=== PATIENT | female | born 1995 | race American Indian/Alaskan Native ===

== ENCOUNTER 2017-09-04 17:51 | Outpatient (CLI) | payer OTHER ==
[2017-09-04 18:13] VITALS: BP 120/71
[2017-09-04] MEDS ORDERED: VISTARIL PO PRN (19:08)
== END 2017-09-04 19:14 | disposition home or self-care (01) ==
LOC: TRG 17:51
PROVIDERS: ATTEND Obstetrics & Gynecology
DX: Z34.93 Encounter for supervision of normal pregnancy, unspecified, third trimester (principal); Z3A.38 38 weeks gestation of pregnancy
CPT/HCPCS: 59025; Q0177

== ENCOUNTER 2017-09-08 00:04 | Outpatient (CLI) | payer OTHER | END 2017-09-08 02:35 | disposition home or self-care (01) | LOC: TRG 00:04 | PROVIDERS: ATTEND Obstetrics & Gynecology | DX: O62.9 Abnormality of forces of labor, unspecified (principal); Z3A.39 39 weeks gestation of pregnancy | CPT/HCPCS: 59025 ==

== ENCOUNTER 2017-09-14 15:24 | Inpatient (IN) | payer OTHER ==
[2017-09-14] MEDS ORDERED: XYLOCAINE 2% INFILTRATI ONE (16:50)
[2017-09-14] MEDS ORDERED: ePHEDrine SULFATE IV PRN (16:50)
[2017-09-14] MEDS ORDERED: BRETHINE IVP PRN (16:50)
[2017-09-14] MEDS ORDERED: NARCAN 0.4 MG/1 ML IV PRN (16:50)
[2017-09-14] MEDS ORDERED: MINERAL OIL PO PRN (16:50)
[2017-09-14] MEDS ORDERED: BRETHINE SUB-Q PRN (16:50)
[2017-09-14] MEDS ORDERED: STADOL IV PRN (16:50)
[2017-09-14] MEDS ORDERED: PITOCin/NS 20 UNIT/1000ML DRIP 20 UNITS/1,000 ML BAG IV SCH (17:00)
--- NOTE | 2017-09-14 17:08 | History and Physical Report ---
History of Present Illness Date of examination: 09/14/17 Date of admission: 09/14/2017 Chief complaint: Labor Pains History of present illness: Early entry to care, mildly elevated blood pressures in the first trimester, co-supa with APA due to maternal obesity. course complicated by a UTI and Vitamin D Insufficiency. Right ventriculomegaly observed at 22 Weeks consulted with Pediatric Cardiology. Past History Past Medical History: asthma Past Surgical History: no surgical history Family/Genetic History: diabetes, hypertension Social history: no significant social history, single - Obstetrical History Expected Date of Delivery: 09/13/17 Actual Gestation: 40 Week(s) 1 Day(s) : 2 Para: 1 Hx # Term Pregnancies: 1 Number of Living Children: 1 #1 Gender: Female year: Birthweight: 3.232 kg Method of Delivery: Vaginal Gestational age at delivery: 40 Complications: none Medications and Allergies Allergies Allergy/AdvReac Type Severity Reaction Status Date / Time latex Allergy Itching Verified 09/04/17 17:58 Home Medications Medication Instructions Recorded Confirmed Last Taken Type Pnv with Ca,No.72/Iron/FA 1 tab PO DAILY 12/06/14 09/14/17 09/12/17 21:00 History [ Plus Tablet] Active Meds: Active Medications Butorphanol Tartrate (Stadol) 2 mg IV Q2H PRN PRN Reason: Pain , Severe (7-10) Ephedrine Sulfate (Ephedrine Sulfate) 10 mg IV Q2M PRN PRN Reason: Hypotension Parenteral Electrolytes (Normosol-R Ph 7.4) 1,000 mls @ 125 mls/hr IV DIRECT ETHAN Oxytocin/Sodium Chloride (Pitocin/Ns 20 Unit/1000ml Drip) 20 units in 1,000 mls @ 125 mls/hr IV DIRECT ETHAN Lidocaine (Xylocaine 2%) 20 ml INFILTRATI ONCE ONE Stop: 09/14/17 16:51 Mineral Oil (Mineral Oil) 30 ml PO QHS PRN PRN Reason: Constipation Naloxone HCl (Narcan 0.4 Mg/1 Ml) 0.1 mg IV Q2MIN PRN PRN Reason: Res Rate </= 8 or 02 SAT < 92% Terbutaline Sulfate (Brethine) 0.25 mg SUB-Q ONCE PRN PRN Reason: Hyperstimulation/Hypertonicity Terbutaline Sulfate (Brethine) 0.25 mg IVP ONCE PRN PRN Reason: Hyperstimulation/Hypertonicity Review of Systems All systems: negative - Vital Signs Vital signs: Vital Signs Pulse BP 96 H 144/80 09/14/17 16:17 09/14/17 16:17 Temp Pulse Resp BP Pulse Ox 98.7 F 108 H 144/80 98 09/14/17 16:40 09/14/17 17:03 09/14/17 16:17 09/14/17 17:03 - Physical Exam Breasts: Positive: normal Cardiovascular: Regular rate Lungs: Positive: Clear to auscultation, Normal air movement Abdomen: Positive: normal appearance, soft, normal bowel sounds Genitourinary (Female): Positive: normal external genitalia, normal perenium Vagina: Positive: normal moisture Uterus: Positive: enlarged Anus/Rectum: Positive: normal perianal skin Extremities: Positive: edema - Obstetrical FHR: category 1 Uterine Contraction Monitor Mode: External Cervical Dilatation: 4.5 Cervical Effacement Percentage: 70 station: -2 Uterine Contraction Pattern: Irregular Uterine Tone Measurement Phase: Resting Uterine Contraction Intensity: Moderate Results All other labs normal. Assessment and Plan A: IUP @ 40 1/7 Weeks Category I Tracing Early Labor GBS Negative P: Admit to L&D per Routine Orders Expectant Management
[2017-09-14 19:33] LABS: Hematocrit 33.6 % (30.3-42.9); Hemoglobin 11.3 gm/dl (10.1-14.3); Mean Corpuscular HGB Conc 34 % (30-34); Mean Corpuscular Hemoglobin 28 pg (28-32); Mean Corpuscular Volume 83 fl (79-97); Platelet Count 239 K/mm3 (140-440); Red Blood Count 4.07 M/mm3 (3.65-5.03)
[2017-09-14] MEDS ORDERED: PITOCin/NS 30 UNIT/500ML 30,000 MILLIUNITS/500 ML BAG IV ONE (19:46)
[2017-09-14] MEDS: NORMOSOL-R PH 7.4 1,000 ML IV SCH (20:01)
[2017-09-14] MEDS: PITOCin/NS 30 UNIT/500ML 30 UNITS/500 ML BAG IV SCH ×4 (20:01→22:45)
--- NOTE | 2017-09-14 22:59 | Progress Note ---
Assessment and Plan - Patient Problems (1) 40 weeks gestation of Onset Date: 09/14/17 Current Visit: Yes Status: Acute Plan to address problem: A: IUP @ 40 1/7 weeks in labor P: Continue with pitocin augmentation of labor Expectant vaginal delivery Subjective - Subjective Date of service: 09/14/17 Principal diagnosis: IUP @ 40 1/7 weeks Interval history: Pt currently on pitocin 12mu/mins and samara q 3-4 mins with IV pain meds. Patient reports: movement normal, contractions, no new complaints, no loss of fluid, no vaginal bleeding Objective - Vital Signs Vital Signs: Vital Signs - 12hr 09/14/17 09/14/17 09/14/17 16:17 16:18 16:23 Temperature Pulse Rate 96 H 94 H 95 H Respiratory Rate Blood Pressure 144/80 Blood Pressure [Left] O2 Sat by Pulse 98 97 Oximetry 09/14/17 09/14/17 09/14/17 16:28 16:33 16:38 Temperature Pulse Rate 93 H 104 H 92 H Respiratory Rate Blood Pressure Blood Pressure [Left] O2 Sat by Pulse 97 97 98 Oximetry 09/14/17 09/14/17 09/14/17 16:40 16:43 16:48 Temperature 98.7 F Pulse Rate 95 H 102 H 94 H Respiratory Rate Blood Pressure Blood Pressure [Left] O2 Sat by Pulse 96 96 96 Oximetry 09/14/17 09/14/17 09/14/17 16:53 16:58 17:03 Temperature Pulse Rate 94 H 91 H 108 H Respiratory Rate Blood Pressure Blood Pressure [Left] O2 Sat by Pulse 97 98 98 Oximetry 09/14/17 09/14/17 09/14/17 17:08 17:13 17:18 Temperature Pulse Rate 96 H 96 H 95 H Respiratory Rate Blood Pressure Blood Pressure [Left] O2 Sat by Pulse 98 98 98 Oximetry 09/14/17 09/14/17 09/14/17 17:23 17:28 17:33 Temperature Pulse Rate 101 H 94 H 98 H Respiratory Rate Blood Pressure Blood Pressure [Left] O2 Sat by Pulse 97 98 98 Oximetry 09/14/17 09/14/17 09/14/17 17:38 17:43 17:48 Temperature Pulse Rate 92 H 91 H 89 Respiratory Rate Blood Pressure Blood Pressure [Left] O2 Sat by Pulse 98 98 98 Oximetry 09/14/17 09/14/17 09/14/17 17:53 17:58 18:00 Temperature Pulse Rate 89 93 H 92 H Respiratory Rate Blood Pressure Blood Pressure [Left] O2 Sat by Pulse 98 98 91 Oximetry 09/14/17 09/14/17 09/14/17 18:03 19:08 19:13 Temperature 97.7 F Pulse Rate 88 90 90 Respiratory 18 Rate Blood Pressure 114/72 Blood Pressure 115/70 [Left] O2 Sat by Pulse 98 97 Oximetry 09/14/17 09/14/17 09/14/17 19:15 20:06 20:39 Temperature Pulse Rate 90 89 89 Respiratory Rate Blood Pressure 115/70 119/71 117/68 Blood Pressure [Left] O2 Sat by Pulse Oximetry 09/14/17 09/14/17 09/14/17 21:10 21:25 21:40 Temperature 99.1 F Pulse Rate 85 108 H 86 Respiratory 18 Rate Blood Pressure 116/68 120/67 Blood Pressure 132/79 [Left] O2 Sat by Pulse 100 Oximetry 09/14/17 09/14/17 22:09 22:40 Temperature Pulse Rate 92 H 99 H Respiratory Rate Blood Pressure 105/57 127/86 Blood Pressure [Left] O2 Sat by Pulse Oximetry - Exam Abdomen: Present: normal appearance, soft Uterus: Present: normal FHR: category 1 Uterine Contraction Monitor Mode: External Cervical Dilatation: 5 Cervical Effacement Percentage: 70 station: -2 Uterine Contraction Pattern: Regular Uterine Tone Measurement Phase: Contraction Uterine Contraction Intensity: Moderate - Labs Labs: Laboratory Results - last 24 hr 09/14/17 09/14/17 19:10 19:10 WBC 10.5 RBC 4.07 Hgb 11.3 Hct 33.6 MCV 83 MCH 28 MCHC 34 RDW 14.0 Plt Count 239 Blood Type O POSITIVE Antibody Screen Negative
[2017-09-15] MEDS: NORMOSOL-R PH 7.4 1,000 ML IV SCH ×2 (00:30→02:20)
[2017-09-15] MEDS ORDERED: NARCAN 2 MG/2 ML IV PRN (01:41)
[2017-09-15] MEDS ORDERED: ePHEDrine SULFATE IV PRN (01:41)
--- NOTE | 2017-09-15 01:41 | Anesthesia Consultation ---
Anesthesia Consult and Med Hx Date of service: 09/15/17 - Airway Anesthetic Teeth Evaluation: Good ROM Head & Neck: Adequate Mental/Hyoid Distance: Adequate Mallampati Class: Class II Intubation Access Assessment: Good - Pulmonary Exam CTA: Yes - Cardiac Exam Cardiac Exam: No Murmur - Pre-Operative Health Status ASA Pre-Surgery Classification: ASA2 Proposed Anesthetic Plan: Epidural - Pulmonary Hx Asthma: Yes (last attack over 1 year) COPD: No Hx Pneumonia: No - Cardiovascular System Hx Hypertension: No Hx Coronary Artery Disease: No Hx Heart Attack/AMI: No Hx Angina: No - Central Nervous System Hx Seizures: No Hx Psychiatric Problems: No - Gastrointestinal Hx Gastroesophageal Reflux Disease: No - Endocrine Hx Renal Disease: No Hx End Stage Renal Disease: No Hx Hypothyroidism: No Hx Hyperthyroidism: No - Hematic Hx Anemia: No Hx Sickle Cell Disease: No - Other Systems Hx Alcohol Use: No Hx Obesity: Yes (BMI 44)
[2017-09-15] MEDS ORDERED: fentaNYL-BUPIV 2 MCG/ML-0.125% 200 MCG/100 ML BAG EPIDURAL SCH (02:00)
[2017-09-15] MEDS ORDERED: XYLOCAINE 2% INFILTRATI ONE (03:58)
--- NOTE | 2017-09-15 04:15 | Procedure Note ---
OB Delivery Note - Delivery Date of Delivery: 09/15/17 Surgeon: ROBINA WHITLEY Estimated blood loss: 200cc - Vaginal Delivery presentation: vertex Delivery position: OA Intrapartum events: none Delivery induction: none Delivery augmentation: rupture of membranes Delivery monitor: external FHT, external uterine Route of delivery: Delivery placenta: spontaneous Delivery cord: 3 umbilical vessels Episiotomy: none Delivery laceration: 2nd degree (perineal) Delivery repair: vicryl Anesthesia: local, epidural Delivery comments: delivered OA and placed on Mom's chest for [id number] bonding and delayed cord clamping. - A at 1 minute: 8 at 5 minutes: 8 Gender: Male (3766gms)
[2017-09-15] MEDS ORDERED: PHENERGAN PO PRN (04:16)
[2017-09-15] MEDS ORDERED: LANSINOH TP PRN (04:16)
[2017-09-15] MEDS ORDERED: TYLENOL PO PRN (04:16)
[2017-09-15] MEDS ORDERED: ZOFRAN IV PRN (04:16)
[2017-09-15] MEDS ORDERED: DULCOLAX PR PRN (04:16)
[2017-09-15] MEDS ORDERED: BENADRYL PO PRN (04:16)
[2017-09-15] MEDS ORDERED: MILK OF MAGNESIA PO PRN (04:16)
[2017-09-15] MEDS ORDERED: TUCKS PAD TP PRN (04:16)
[2017-09-15] MEDS ORDERED: PHENERGAN PR PRN (04:16)
[2017-09-15] MEDS: NORCO 5/325 PO PRN ×2 (04:36→10:42)
[2017-09-15] MEDS ORDERED: PITOCin/NS 20 UNIT/1000ML DRIP 20 UNITS/1,000 ML BAG IV SCH ×2 (05:00)
[2017-09-15] MEDS ORDERED: SODIUM CHLORIDE FLUSH SYRINGE 10 ML IV NR (05:00)
[2017-09-15] MEDS: MOTRIN PO SCH ×3 (05:36→18:14)
[2017-09-15] MEDS: FEOSOL PO SCH ×2 (10:43→22:19)
[2017-09-15] MEDS: PRENATAL VITAMIN PO SCH (10:43)
[2017-09-15] MEDS: COLACE PO SCH ×2 (10:43→22:19)
[2017-09-15 16:31] LABS: Hematocrit 28.6 % (30.3-42.9); Hemoglobin 9.3 gm/dl (10.1-14.3)
[2017-09-16] MEDS: MOTRIN PO SCH ×2 (00:15→05:39)
[2017-09-16] MEDS ORDERED: M-M-R II VACCINE SUB-Q ONE (06:00)
[2017-09-16] MEDS: COLACE PO SCH (10:09)
[2017-09-16] MEDS: PRENATAL VITAMIN PO SCH (10:10)
[2017-09-16] MEDS: FEOSOL PO SCH (10:11)
--- NOTE | 2017-09-16 14:07 | Progress Note ---
Assessment and Plan A: PPD#1 s/p Stable Desires discharge home P: Routine PP care Discharge home today PPE in 6 weeks Subjective - Subjective Date of service: 09/16/17 Principal diagnosis: 09/15/17 Patient reports: appetite normal, voiding normally, pain well controlled, flatus , ambulating normally : doing well, nursing well Objective - Vital Signs Latest vital signs: Vital Signs Temp Pulse Resp BP BP Pulse Ox 09/16/17 12:00 98.9 F 90 20 115/61 96 09/16/17 08:29 98.6 F 83 20 120/68 96 09/16/17 05:39 18 09/16/17 00:15 18 09/15/17 23:30 98.7 F 98 H 18 114/68 Intake and Output 09/15/17 09/16/17 09/16/17 23:59 07:59 15:59 Intake Total 480 180 120 Balance 480 180 120 Intake: Oral 120 Intake, Free Water 480 180 Other: Total, Intake Amount 120 # Voids Void 1 1 - Exam Breasts: Present: normal Cardiovascular: Present: Regular rate, Normal S1, Normal S2 Lungs: Present: Clear to auscultation, Normal air movement Abdomen: Present: normal appearance, soft, normal bowel sounds Vulva: both: normal Uterus: Present: firm, fundal height below umbilicus (-1) Extremities: Present: normal, edema (+1). Absent: tenderness Deep Tendon Reflex Grade: Normal +2 - Labs Labs: Abnormal lab results 09/15/17 Range/Units 16:05 Hgb 9.3 L (10.1-14.3) gm/dl Hct 28.6 L (30.3-42.9) %
--- NOTE | 2017-09-16 14:08 | Discharge Summary ---
Providers - Providers Date of Admission: 09/14/17 18:03 Date of discharge: 09/16/17 Attending physician: NIKA GARNER MD Primary care physician: NIKA GARNER MD Hospitalization Reason for admission: IUP at term Delivery: Procedure details: See delivery note Episiotomy: none Laceration: none Other procedures: none complications: none Discharge diagnosis: IUP at term delivered baby: male Condition at discharge: Good Disposition: DC-01 TO HOME OR SELFCARE Plan - Provider Discharge Summary Activity: routine, no sex for 6 weeks, no heavy lifting 4 weeks, no strenuous exercise Diet: routine Instructions: routine Additional instructions: [] Smoking cessation referral if applicable(refer to patient education folder for contact #) [] Refer to [facility] Booklet Call your doctor immediately for: * Fever > 100.5 * Heavy vaginal bleeding ( >1 pad per hour) * Severe persistent headache * Shortness of breath * Reddened, hot, painful area to leg or breast * Drainage or odor from incision. * Keep incision clean and dry at all times and follow doctor's instructions regarding bathing/showering - Follow up plan Follow up: NIKA GARNER MD [Primary Care Provider] - 6 Weeks
[2017-09-16 18:43] VITALS: BP 122/78
== END 2017-09-16 20:40 | disposition home or self-care (01) | DRG 775 ==
LOC: TRG 15:24 → LD 18:03 → OB 09-15 05:26
PROVIDERS: ADMIT Obstetrics & Gynecology; ATTEND Obstetrics & Gynecology
PROC: 10E0XZZ Delivery of Products of Conception, External Approach (ICD-10-PCS; principal; 2017-09-15)
PROC: 0KQM0ZZ Repair Perineum Muscle, Open Approach (ICD-10-PCS; 2017-09-15)
PROC: 3E0234Z Introduction of Serum, Toxoid and Vaccine into Muscle, Percutaneous Approach (ICD-10-PCS; 2017-09-16)
PROC: 3E0R3BZ Introduction of Anesthetic Agent into Spinal Canal, Percutaneous Approach (ICD-10-PCS; 2017-09-16)
PROC: 00HU33Z Insertion of Infusion Device into Spinal Canal, Percutaneous Approach (ICD-10-PCS; 2017-09-16)
DX: O99.214 Obesity complicating childbirth (principal); O99.52 Diseases of the respiratory system complicating childbirth; E66.9 Obesity, unspecified; J45.909 Unspecified asthma, uncomplicated; Z3A.40 40 weeks gestation of pregnancy; Z37.0 Single live birth; Z23 Encounter for immunization; Z68.43 Body mass index [BMI] 50.0-59.9, adult; Z83.3 Family history of diabetes mellitus; Z82.49 Family history of ischemic heart disease and other diseases of the circulatory system; O70.1 Second degree perineal laceration during delivery
CPT/HCPCS: 36415; 59025; 85014; 85018; 85027; 86850; 86900; 86901; A6250; J0595; J2590

== ENCOUNTER 2020-11-16 20:50 | Inpatient (IN) | payer OTHER ==
[2020-11-16] MEDS ORDERED: DINOPROSTONE 10 MG VAG SUPP VG STA (22:51)
--- NOTE | 2020-11-16 23:15 | History and Physical Report ---
History of Present Illness Date of examination: 11/16/20 Date of admission: 11/16/20 20:50 Chief complaint: scheduled induction of labor at 39.0wks History of present illness: at 39.0wks by LMP c/w U/S. pt here for scheduled induction due morbid obesity. Pt admits to feeling ctx, denies leakage of fluid, vaginal bleeding or headache. care at [facility] with Rh positive, neg antibody screen, Rub Immune, RPR and HIV are both negative and Hep BsAg negative. Abnormal 1hrgtt with normal 3hrgtt. Past History Past Medical History: asthma (no attack since childhood), other (morbid obesity) Past Surgical History: no surgical history Social history: no significant social history - Obstetrical History Expected Date of Delivery: 11/23/20 Actual Gestation: 39 Week(s) 0 Day(s) : 4 Hx # Term Pregnancies: 2 Spontaneous Abortions: 1 Number of Living Children: 2 Medications and Allergies Allergies Allergy/AdvReac Type Severity Reaction Status Date / Time latex Allergy Itching Verified 09/04/17 17:58 Home Medications Medication Instructions Recorded Confirmed Last Taken Type Pnv with Ca,No.72/Iron/FA 1 tab PO DAILY 12/06/14 09/14/17 09/12/17 21:00 History [ Plus Tablet] Review of Systems All systems: negative (no complaints) - Vital Signs Vital signs: Vital Signs Temp Pulse Resp BP 98.6 F 91 H 18 121/61 11/16/20 21:11 11/16/20 21:11 11/16/20 21:11 11/16/20 21:11 Temp Pulse Resp BP Pulse Ox 98.6 F 91 H 18 121/61 11/16/20 21:11 11/16/20 21:22 11/16/20 21:11 11/16/20 21:22 - Physical Exam Breasts: Positive: deferred Cardiovascular: Regular rate Lungs: Positive: Normal air movement Abdomen: Positive: soft, other (obese) Genitourinary (Female): Positive: normal external genitalia Vagina: Positive: normal moisture Uterus: Positive: enlarged (non-tender gravid) Extremities: Positive: normal - Obstetrical FHR: category 1 Uterine Contraction Monitor Mode: External Cervical Dilatation: 3 (not c/w with admit nurse) Cervical Effacement Percentage: 50 station: -2 Results All other labs normal. Assessment and Plan term IUP with BMI 51 here for induction of labor, now in latent labor,GBS negative and h/o stable asthma 1. Admit to labor and delivery 2. Augment labor with IV pitocin 3. May have IV pain med or Epidural when desired 4. No hemabate if uterotonics needed Plan of care discussed. Expect
[2020-11-16] MEDS ORDERED: miSOPROStol 200 MCG TAB PR PRN (23:22)
[2020-11-16] MEDS ORDERED: PROMETHAZINE 25 MG TAB PO PRN (23:22)
[2020-11-16] MEDS ORDERED: TERBUTALINE 1 MG/1 ML INJ SUB-Q PRN (23:22)
[2020-11-16] MEDS ORDERED: NalbUPHINE 10 MG/1 ML INJ IV PRN (23:22)
[2020-11-16] MEDS ORDERED: LIDOCAINE (2%) 20 MG/1 ML VIAL 20 ML MDV INFILTRATI ONE (23:22)
[2020-11-16] MEDS ORDERED: MINERAL OIL 30 ML ORAL LIQD PO PRN (23:22)
[2020-11-16] MEDS ORDERED: ePHEDrine SULFATE 50 MG/1 ML INJ IV PRN (23:22)
[2020-11-16] MEDS ORDERED: fentaNYL 100 MCG/2 ML INJ IV PRN (23:22)
[2020-11-16] MEDS ORDERED: NALOXONE 0.4 MG/1 ML INJ IV PRN (23:22)
[2020-11-16] MEDS ORDERED: ONDANSETRON 4 MG/2 ML INJ IV PRN (23:22)
[2020-11-16] MEDS ORDERED: LACTATED RINGERS 1,000 ML ONE ×2 (23:23)
[2020-11-16] MEDS ORDERED: OXYTOCIN DRIP 30,000 MILLIUNITS/500 ML BAG IV ONE (23:24)
[2020-11-16] MEDS ORDERED: OXYTOCIN DRIP 30 UNITS/500 ML BAG IV SCH ×2 (23:45)
[2020-11-17 00:05] LABS: Hematocrit 32.7 % (30.3-42.9); Hemoglobin 10.9 gm/dl (10.1-14.3); Mean Corpuscular HGB Conc 33 % (30-34); Mean Corpuscular Volume 83 fl (79-97); Platelet Count 285 K/mm3 (140-440); Red Blood Count 3.92 M/mm3 (3.65-5.03); Red Cell Distribution Width 14.6 % (13.2-15.2)
[2020-11-17] MEDS: LACTATED RINGERS 1,000 ML IV SCH ×2 (04:09→13:03)
--- NOTE | 2020-11-17 10:10 | Progress Note ---
Assessment and Plan A: IUP@ 39.1 wks MO GBS neg p: Continuous monitoring with Pitocin Pain med/Epidural prn Anticipate Subjective - Subjective Date of service: 11/17/20 Principal diagnosis: IUP@ 39.1 wks Patient reports: movement normal Objective - Vital Signs Vital Signs: Vital Signs - 12hr 11/17/20 11/17/20 11/17/20 07:04 07:35 07:56 Pulse Rate 79 80 83 Blood Pressure 132/63 129/71 O2 Sat by Pulse 98 Oximetry 11/17/20 11/17/20 11/17/20 07:57 08:01 08:05 Pulse Rate 81 82 85 Blood Pressure 119/69 O2 Sat by Pulse 91 96 93 Oximetry 11/17/20 11/17/20 11/17/20 08:06 08:11 08:16 Pulse Rate 84 99 H 81 Blood Pressure 126/63 O2 Sat by Pulse 96 96 97 Oximetry 11/17/20 11/17/20 11/17/20 08:21 08:26 08:31 Pulse Rate 86 90 81 Blood Pressure O2 Sat by Pulse 96 97 97 Oximetry 11/17/20 11/17/20 11/17/20 08:35 08:36 08:41 Pulse Rate 84 77 86 Blood Pressure 121/68 O2 Sat by Pulse 92 98 96 Oximetry 11/17/20 11/17/20 11/17/20 08:46 08:51 08:56 Pulse Rate 87 84 89 Blood Pressure O2 Sat by Pulse 96 97 97 Oximetry 11/17/20 11/17/20 11/17/20 09:01 09:02 09:05 Pulse Rate 89 92 H 79 Blood Pressure 144/79 O2 Sat by Pulse 98 94 Oximetry 11/17/20 11/17/20 11/17/20 09:06 09:11 09:16 Pulse Rate 93 H 89 95 H Blood Pressure O2 Sat by Pulse 97 97 96 Oximetry 11/17/20 11/17/20 11/17/20 09:21 09:26 09:31 Pulse Rate 81 86 84 Blood Pressure O2 Sat by Pulse 95 97 97 Oximetry 11/17/20 11/17/20 11/17/20 09:35 09:36 09:41 Pulse Rate 83 87 76 Blood Pressure 140/76 O2 Sat by Pulse 94 97 96 Oximetry 11/17/20 11/17/20 11/17/20 09:46 09:51 09:56 Pulse Rate 84 80 80 Blood Pressure O2 Sat by Pulse 96 96 96 Oximetry 11/17/20 11/17/20 10:01 10:06 Pulse Rate 78 82 Blood Pressure 140/78 O2 Sat by Pulse 96 Oximetry - Exam Breasts: normal Abdomen: Present: normal appearance, soft, normal bowel sounds Vulva: both: normal Uterus: Present: normal FHR: auscultation normal, category 1 Uterine Contraction Monitor Mode: External Cervical Dilatation: 4 Cervical Effacement Percentage: 75 station: -2 Uterine Contraction Pattern: Irregular Uterine Tone Measurement Phase: Resting Uterine Contraction Intensity: Mild Extremities: normal - Labs Labs: Laboratory Results - last 24 hr 11/16/20 21:30 WBC 9.6 RBC 3.92 Hgb 10.9 Hct 32.7 MCV 83 MCH 28 MCHC 33 RDW 14.6 Plt Count 285
[2020-11-17] MEDS ORDERED: HYDROCORTISONE 25 MG RECTAL SUPP PR PRN (15:37)
[2020-11-17] MEDS ORDERED: diphenhydrAMINE 25 MG CAP PO PRN (15:37)
[2020-11-17] MEDS ORDERED: ONDANSETRON 4 MG/2 ML INJ IV PRN (15:37)
[2020-11-17] MEDS ORDERED: PROMETHAZINE 25 MG RECT SUPP PR PRN (15:37)
[2020-11-17] MEDS ORDERED: oxyCODONE /ACETAMINOPHEN 5-325MG TAB PO PRN (15:37)
[2020-11-17] MEDS ORDERED: WITCH HAZEL/ GLYCERIN PAD TP PRN (15:37)
[2020-11-17] MEDS ORDERED: BENZOCAINE/MENTHOL 20/0.5% TOP SPRAY 56 GM TP PRN (15:37)
[2020-11-17] MEDS ORDERED: ACETAMINOPHEN 325 MG TAB PO PRN (15:37)
[2020-11-17] MEDS ORDERED: LANOLIN/ZINC/DIMETHICONE (LANSINOH) 7 GM TP PRN ×2 (15:37)
[2020-11-17] MEDS ORDERED: oxyCODONE /ACETAMINOPHEN 5-325MG TAB ONE (15:37)
[2020-11-17] MEDS ORDERED: PROMETHAZINE 25 MG TAB PO PRN (15:37)
--- NOTE | 2020-11-17 15:43 | Procedure Note ---
OB Delivery Note - Delivery Date of Delivery: 11/17/20 Surgeon: KYLE DICKINSON JR Estimated blood loss: 100cc - Vaginal Delivery presentation: vertex Delivery position: OA Intrapartum events: other(please specify) (precipitous delivery, delivered by RN) Delivery induction: oxytocin Delivery augmentation: rupture of membranes, pitocin Delivery monitor: external FHT, external uterine Route of delivery: Delivery placenta: spontaneous Episiotomy: none Delivery laceration: none Anesthesia: none Delivery comments: Precipitous delivery performed by RN at 1500. I presented to labor delivery shortly after the delivery of the placenta at 1510. Male infant 8/9 Apgars. 3484g, 20 inches. Fundus firm below the umbilicus. No lacerations noted. - Infant A at 1 minute: 8 at 5 minutes: 9 Infant Gender: Male
[2020-11-17] MEDS ORDERED: MAGNESIUM HYDROXIDE (MOM) ORAL LIQD UDC PO PRN (16:37)
[2020-11-17] MEDS: IBUPROFEN 600 MG TAB PO SCH (22:22)
[2020-11-18 06:26] LABS: Hematocrit 28.1 % (30.3-42.9); Hemoglobin 9.4 gm/dl (10.1-14.3)
[2020-11-18] MEDS: IBUPROFEN 600 MG TAB PO SCH ×2 (06:49→12:17)
--- NOTE | 2020-11-18 10:33 | Progress Note ---
Assessment and Plan A: PP Day #1 Asymptomatic Anemia P: Follow Routine Orders Encouraged to increase dietary iron D/C home today per patient request RTO in 6 Weeks Subjective - Subjective Date of service: 11/18/20 Principal diagnosis: IUP@ 39.1 wks Patient reports: appetite normal, voiding normally, pain well controlled, flatus, ambulating normally : doing well Objective - Vital Signs Latest vital signs: Vital Signs Temp Pulse Resp BP BP Pulse Ox 11/17/20 23:45 97.9 F 75 18 94/53 96 11/17/20 20:03 97.7 F 83 20 109/61 95 11/17/20 17:55 98.2 F 102 H 16 107/58 96 11/17/20 16:37 82 114/55 11/17/20 16:22 83 122/62 11/17/20 16:21 88 97 11/17/20 16:16 84 98 11/17/20 16:11 83 98 11/17/20 16:07 83 132/70 11/17/20 16:06 90 98 11/17/20 16:01 85 96 11/17/20 15:56 89 97 11/17/20 15:52 85 123/63 11/17/20 15:51 87 99 11/17/20 15:46 100 H 98 11/17/20 15:41 103 H 98 11/17/20 15:39 20 11/17/20 15:36 101 H 98 11/17/20 15:35 100 H 121/56 11/17/20 15:31 103 H 98 11/17/20 15:26 101 H 98 11/17/20 15:23 98 H 131/58 11/17/20 15:21 100 H 97 11/17/20 15:16 109 H 98 11/17/20 15:11 109 H 99 11/17/20 15:06 100 H 99 11/17/20 15:05 97.7 F 101 H 139/63 93 11/17/20 15:01 98 H 97 11/17/20 14:56 102 H 99 11/17/20 14:51 106 H 96 11/17/20 14:46 96 H 98 11/17/20 14:41 90 99 11/17/20 14:36 96 H 126/59 99 11/17/20 14:31 90 98 11/17/20 14:26 86 97 05/ 14:21 88 96 05 14:16 89 95 05 14:13 86 94 05 14:11 81 97 05 14:07 72 86 05 14:06 90 134/61 97 05 14:03 22 05 14:01 87 97 05 13:56 93 H 98 05 13:51 94 H 97 05 13:46 96 H 97 05 13:42 89 86 05 13:41 115 H 92 05 13:36 26 L 05 13:35 82 145/78 05 13:32 87 97 05 13:31 82 94 05 13:27 86 97 05 13:22 86 98 05 13:17 89 99 05 13:12 94 H 98 05 13:07 86 98 05 13:06 85 122/59 05 13:02 84 98 05 12:57 85 99 05 12:52 90 99 05 12:47 72 86 05 12:42 81 96 05 12:37 79 95 05 12:35 79 132/65 93 05 12:32 81 96 05 12:27 78 95 05 12:23 99 H 94 05 12:22 85 96 05/21 12:17 84 96 05/21 12:12 82 96 05 12:07 79 97 05/ 12:05 84 128/61 93 05/21 12:02 88 96 05 12:00 78 92 05 11:57 82 97 05/21 11:52 81 96 0525/21 11:47 82 96 05/25/21 11:42 82 97 05/25/21 11:37 80 97 05/25/21 11:36 81 128/59 05/25/21 11:35 83 93 05/25/21 11:32 96 H 97 11/17/20 11:27 82 97 11/17/20 11:22 92 H 96 11/17/20 11:17 82 96 11/17/20 11:12 95 H 96 11/17/20 11:07 82 98 11/17/20 11:05 80 105/69 11/17/20 11:04 78 94 11/17/20 11:02 90 97 11/17/20 10:57 74 97 11/17/20 10:52 77 97 11/17/20 10:47 86 95 11/17/20 10:42 78 96 11/17/20 10:37 77 97 11/17/20 10:34 77 113/56 94 11/17/20 10:32 79 96 Intake and Output 11/17/20 11/18/20 11/18/20 22:59 06:59 14:59 Intake Total 600 360 Output Total 600 500 Balance 0 -140 Intake: Oral 240 360 Intake, Free Water 360 Output: Urine 600 500 Void 600 500 Other: Total, Intake Amount 240 120 Total, Output Amount 600 500 # Voids Void 500 Estimated Blood Loss 100 - Exam Breasts: Present: normal Cardiovascular: Present: Regular rate Lungs: Present: Clear to auscultation, Normal air movement Abdomen: Present: normal appearance, soft, normal bowel sounds Uterus: Present: normal, firm, fundal height below umbilicus Extremities: Present: normal - Labs Labs: Abnormal lab results 11/18/20 Range/Units 05:46 Hgb 9.4 L (10.1-14.3) gm/dl Hct 28.1 L (30.3-42.9) %
--- NOTE | 2020-11-18 10:35 | Discharge Summary ---
Providers - Providers Date of Admission: 11/16/20 20:50 Date of discharge: 11/18/20 Attending physician: RICHARD CHAN Primary care physician: RICHARD CHAN Hospitalization Reason for admission: induction of labor Delivery: Episiotomy: none Laceration: none Other procedures: none complications: none Discharge diagnosis: IUP at term delivered baby: male Condition at discharge: Good Disposition: DC-01 TO HOME OR SELFCARE Plan - Provider Discharge Summary Activity: routine, no sex for 6 weeks, no heavy lifting 4 weeks, no strenuous exercise Diet: routine Instructions: routine Additional instructions: [] Smoking cessation referral if applicable(refer to patient education folder for contact #) [] Refer to [facility]'s [facility] Booklet Call your doctor immediately for: * Fever > 100.5 * Heavy vaginal bleeding ( >1 pad per hour) * Severe persistent headache * Shortness of breath * Reddened, hot, painful area to leg or breast * Drainage or odor from incision. * Keep incision clean and dry at all times and follow doctor's instructions regarding bathing/showering - Follow up plan Follow up: RICHARD CHAN MD [Primary Care Provider] - 6 Weeks
[2020-11-18 17:34] VITALS: BP 112/56
== END 2020-11-18 17:40 | disposition home or self-care (01) | DRG 775 ==
LOC: LD 20:50 → OB 11-17 17:59
PROVIDERS: ADMIT Obstetrics & Gynecology; ATTEND Obstetrics & Gynecology
PROC: 10E0XZZ Delivery of Products of Conception, External Approach (ICD-10-PCS; principal; 2020-11-17)
PROC: 3E033VJ Introduction of Other Hormone into Peripheral Vein, Percutaneous Approach (ICD-10-PCS; 2020-11-17)
DX: O99.214 Obesity complicating childbirth (principal); E66.01 Morbid (severe) obesity due to excess calories; O99.52 Diseases of the respiratory system complicating childbirth; J45.909 Unspecified asthma, uncomplicated; O62.3 Precipitate labor; O99.03 Anemia complicating the puerperium; Z20.822 Contact with and (suspected) exposure to COVID-19; Z3A.39 39 weeks gestation of pregnancy; Z37.0 Single live birth
CPT/HCPCS: 36415; 85014; 85018; 85027; G0378; J2300; J2405; J2590; J7120; U0003